=== PATIENT | female | born 1930 | race Caucasian/White ===

== ENCOUNTER 2017-03-29 09:36 | Emergency (ER) | payer OTHER ==
[~2017-03-29] VITALS: Ht 154.9 cm; Wt 47.2 kg
[2017-03-29 12:05] LABS: CHLORIDE 103 mEq/L (99-109); POTASSIUM 4.8 mEq/L (3.7-5.4); SODIUM 139 mEq/L (136-147)
[2017-03-29 12:06] LABS: GLUCOSE 90 mg/dL (70-99)
[2017-03-29 12:08] LABS: ANION GAP 12 MEQ/L (2-14)
[2017-03-29 12:10] LABS: GFR ESTIMATE (CALCULATED) 25 mL/min/
[2017-03-29 12:11] LABS: UREA NITROGEN (BUN) 26 mg/dL (9-23)
[2017-03-29 13:35] LABS: EOSINOPHIL (%) 3.7 % (0-5); EOSINOPHIL COUNT 0.2 K/uL (0-0.3); HEMATOCRIT 33.2 % (36.0-46.0); IMMATURE GRANULOCYTE (%) 0.3 % (0.0-0.7); INSTRUMENT ABS NEUTROPHIL CT 3.9 K/uL; LYMPHOCYTE COUNT 1.2 K/uL (1.0-2.8); MCH 31.8 PG (29.0-34.0); MCHC 32.2 G/DL (30.0-36.0); MCV 98.5 FL (83-99); MEAN PLAT.VOLUME 10.7 uM^3 (9.5-12.4); MONOCYTE (%) 13.8 % (3-12); MONOCYTE COUNT 0.9 K/uL (0-0.8); NEUTROPHIL (%) 62.6 % (45-76); NEUTROPHIL COUNT 3.9 K/uL (1.8-6.4); PLATELET COUNT 131 K/uL (156-360); RBC DIS.WIDTH-CV 12.7 % (11.8-14.6); RED BLOOD COUNT 3.37 M/uL (3.80-5.20); WHITE BLOOD COUNT 6.2 K/uL (4.1-10.2)
[2017-03-29 13:49] LABS: ADD MIUA? YES; BILIRUBIN NEGATIVE; BLOOD NEGATIVE; COLOR YELLOW ((YELLOW)); GLUCOSE (STRIP) NEGATIVE; KETONES NEGATIVE; LEUKOCYTES SMALL; NITRITE NEGATIVE; PROTEIN (STRIP) NEGATIVE; SPECIFIC GRAVITY 1.011 (1.000-1.030); UROBILINOGEN 0.2 MG/DL (0.2-1.0)
[2017-03-29 13:57] LABS: BACTERIA NONE SEEN /HPF; EPITHELIAL CELLS NONE SEEN /HPF; GRANULAR CASTS 0-5 /LPF; MUCUS TRACE /LPF; RED BLOOD CELLS 0-5 /HPF (0-5); UCUL ADDED? YES
[2017-03-29] MEDS ORDERED: CIPRO500 MG PO (15:16)
[2017-03-29] MEDS ORDERED: TYLENOL WITH C1 EACH PO (15:16)
[2017-03-29 15:38] VITALS: BP 124/48
== END 2017-03-29 15:45 | disposition home or self-care (01) ==
LOC: EME 09:36
PROVIDERS: Emergency Medicine
DX: S20.212A Contusion of left front wall of thorax, initial encounter (principal); W01.0XXA Fall on same level from slipping, tripping and stumbling without subsequent striking against object, initial encounter; N39.0 Urinary tract infection, site not specified; Z95.1 Presence of aortocoronary bypass graft; Z95.0 Presence of cardiac pacemaker
CPT/HCPCS: 70450; 71020; 71250; 74176; 80048; 81003; 85025; 87086; 93005; 99281; 99285; J7030

== ENCOUNTER 2017-05-06 12:55 | Emergency (ER) | payer OTHER ==
[~2017-05-06] VITALS: Ht 157.5 cm; Wt 47.0 kg
[~2017-05-06 12:55] MED LIST: CIPRO500 MG PO; TYLENOL WITH C1 EACH PO
[2017-05-06 13:55] LABS: ADD MIUA? YES; BILIRUBIN NEGATIVE; BLOOD NEGATIVE; COLOR YELLOW ((YELLOW)); GLUCOSE (STRIP) NEGATIVE; KETONES NEGATIVE; LEUKOCYTES SMALL; NITRITE NEGATIVE; PROTEIN (STRIP) NEGATIVE; SPECIFIC GRAVITY 1.015 (1.000-1.030); UROBILINOGEN 0.2 MG/DL (0.2-1.0)
[2017-05-06 13:58] LABS: BACTERIA NONE SEEN /HPF; EPITHELIAL CELLS NONE SEEN /HPF; MUCUS NONE SEEN /LPF; RED BLOOD CELLS NONE SEEN /HPF (0-5); UCUL ADDED? NO; WHITE BLOOD CELLS 0-5 /HPF (0-5)
[2017-05-06 14:05] LABS: INTER. NORMALIZED RATIO 1.1; PROTHROMBIN TIME 11.7 SEC (10.2-12.9)
[2017-05-06 14:06] LABS: HEMATOCRIT 31.8 % (36.0-46.0); MCH 31.5 PG (29.0-34.0); MCHC 31.8 G/DL (30.0-36.0); MCV 99.1 FL (83-99); PLATELET COUNT 151 K/uL (156-360); RBC DIS.WIDTH-CV 12.9 % (11.8-14.6); RBC DIS.WIDTH-SD 47.2 % (39-53); RED BLOOD COUNT 3.21 M/uL (3.80-5.20); WHITE BLOOD COUNT 6.3 K/uL (4.1-10.2)
[2017-05-06 14:07] LABS: CHLORIDE 103 mEq/L (99-109); SODIUM 137 mEq/L (136-147)
[2017-05-06 14:08] LABS: MAGNESIUM 1.9 mg/dL (1.3-2.7)
[2017-05-06 14:10] LABS: GLUCOSE 112 mg/dL (70-99)
[2017-05-06 14:11] LABS: ANION GAP 4 MEQ/L (2-14)
[2017-05-06 14:12] LABS: TOTAL BILIRUBIN 0.3 mg/dL (0.0-1.0)
[2017-05-06 14:13] LABS: ALKALINE PHOSPHATASE 52 IU/L (3-129); GFR ESTIMATE (CALCULATED) 32 mL/min/
[2017-05-06 14:15] LABS: UREA NITROGEN (BUN) 31 mg/dL (9-23)
[2017-05-06 14:17] LABS: LIPASE 3 U/L (1.0-51.0)
[2017-05-06] MEDS ORDERED: CITRATE OF MAG296 ML PO (16:34)
[2017-05-06 17:04] VITALS: BP 113/76
== END 2017-05-06 17:18 | disposition home or self-care (01) ==
LOC: EME 12:55
DX: R10.30 Lower abdominal pain, unspecified (principal); E78.5 Hyperlipidemia, unspecified; F41.9 Anxiety disorder, unspecified; Z95.1 Presence of aortocoronary bypass graft; Z88.2 Allergy status to sulfonamides
CPT/HCPCS: 74176; 80053; 81003; 83605; 83690; 83735; 85027; 85610; 86850; 86900; 86901; 93005; 99281; 99285